=== PATIENT | male | born 1990 | race Caucasian/White ===

== ENCOUNTER 2024-10-08 13:56 | Emergency (ER) | payer BC ==
[~2024-10-08] VITALS: Ht 190.5 cm; Wt 131.1 kg
[2024-10-08 14:19] VITALS: PULSE 100; RESP 6; TEMP 97.9; O2SAT 100
[2024-10-08] MEDS: KETOROLAC TROMETHAMINE 30 MG/ML VIAL IM STA (14:41)
[2024-10-08] MEDS ORDERED: NAPROXEN250 MG PO (15:01)
== END 2024-10-08 15:15 | disposition home or self-care (01) ==
LOC: ER 14:09
DX: S93.491A Sprain of other ligament of right ankle, initial encounter (principal); M79.671 Pain in right foot; X50.1XXA Overexertion from prolonged static or awkward postures, initial encounter; Y93.01 Activity, walking, marching and hiking; Y92.89 Other specified places as the place of occurrence of the external cause
CPT/HCPCS: 73610; 73630; 93971; 99283; J1885